=== PATIENT | female | born 1995 | race Hispanic/Latino ===

== ENCOUNTER 2016-10-01 20:05 | Emergency (ER) | payer OTHER ==
[2016-10-01 20:17] VITALS: BP 128/88; PULSE 110; TEMP 97.5; O2SAT 96
[2016-10-01] MEDS ORDERED: Aluminum Hydroxide/Magnesium Hydroxide Susp (30 mL) PO STA (21:38)
--- NOTE | 2016-10-01 21:38 | C.PDOC ---
History Of Present Illness 21 year old female presents to the ED with complaints of cough with sputum, decreased appetite and taste, "chest burning" feeling when coughing and episodes of diarrhea that has been worsening over the last two weeks. Patient states she visited her PMD on Wednesday and was given amoxicillin with no relief. She denies any abdominal pain, fever, or any other complaints at this time. Time Seen by Provider: 10/01/16 21:25 Chief Complaint (Nursing): Cough, Cold, Congestion History Per: Patient History/Exam Limitations: no limitations Onset/Duration Of Symptoms: Persistent (for two weeks) Current Symptoms Are (Timing): Worse Associated Symptoms: Cough, Sputum, Diarrhea. denies: Fever Past Medical History Reviewed: Historical Data, Nursing Documentation, Vital Signs Vital Signs: Last Vital Signs Temp 97.5 F L 10/01/16 20:13 Pulse 110 H 10/01/16 20:13 Resp 20 10/01/16 22:34 BP 128/88 10/01/16 20:13 Pulse Ox 96 10/01/16 22:28 - Medical History PMH: Hypothyroidism, Kidney Stones Other PMH: pcos Surgical History: Tonsillectomy Family History: States: Unknown Family Hx - Social History Hx Tobacco Use: No Hx Alcohol Use: Yes Hx Substance Use: No - Immunization History Hx Tetanus Toxoid Vaccination: Yes Hx Influenza Vaccination: No Hx Pneumococcal Vaccination: No Review Of Systems Constitutional: Positive for: Other (decreased appetite ). Negative for: Fever , Chills, Sweats Respiratory: Positive for: Cough (with sputum ). Negative for: Shortness of Breath Gastrointestinal: Positive for: Diarrhea. Negative for: Vomiting, Abdominal Pain Neurological: Negative for: Weakness, Numbness Physical Exam - Physical Exam Appears: Non-toxic, No Acute Distress Skin: Warm, Dry Head: Atraumatic, Normacephalic Eye(s): bilateral: PERRL, EOMI Ear(s): Left: Normal, Right: TM Obscured By Wax Nose: Discharge Oral Mucosa: Moist Tongue: Normal Appearing Throat: Normal Neck: Normal ROM, Supple Chest: Symmetrical, No Deformity Cardiovascular: Rhythm Regular, No Murmur Respiratory: Normal Breath Sounds, No Accessory Muscle Use, No Rales, No Rhonchi , No Stridor, No Wheezing Gastrointestinal/Abdominal: Soft, No Tenderness, No Distention, No Guarding, No Rebound Extremity: Normal ROM, No Tenderness Neurological/Psych: Oriented x3, Normal Speech, Normal Cognition ED Course And Treatment - Laboratory Results Urine POC: Negative O2 Sat by Pulse Oximetry: 96 - Radiology CXR: Interpreted by Me CXR Interpretation: Yes: No Acute Disease. No: Infiltrates Medical Decision Making Medical Decision Makin21 y/o female with pcos, hypothyroid, cough with sputum x 2 weeks with rhinorrhea, wiht neg cxr. pt already on amox. Disposition Counseled Patient/Family Regarding: Diagnosis, Need For Followup - Disposition Disposition: HOME/ ROUTINE Disposition Time: 22:27 Condition: GOOD Additional Instructions: Finish amoxicillin. Take Zyrtec in the morning. take a benadryl 25 mg by mouth at bedtime, makes you sleepy. Stay well hydrated. Follow up with your pmd in a few days. Return to ER for nay worsening symptoms. Instructions: Upper Respiratory Infection (ED) Forms: General Discharge Instructions - Clinical Impression Clinical Impression: Upper respiratory infection - Scribe Statement The provider has reviewed the documentation as recorded by the Scribberto Linton All medical record entries made by the Scribe were at my direction and personally dictated by me. I have reviewed the chart and agree that the record accurately reflects my personal performance of the history, physical exam, medical decision making, and the department course for this patient. I have also personally directed, reviewed, and agree with the discharge instructions and disposition.
[2016-10-01] MEDS ORDERED: Aluminum Hydroxide/Magnesium Hydroxide Susp (30 mL) ONE (21:45)
[2016-10-01 22:34] VITALS: RESP 20
--- NOTE | 2016-10-02 09:59 | RAD ---
HISTORY: cough green sputum COMPARISON: No prior. TECHNIQUE: Chest PA and lateral FINDINGS: LUNGS: No active pulmonary disease. PLEURA: No significant pleural effusion identified. No pneumothorax apparent. . CARDIOVASCULAR: There is mild pectus excavatum. Heart size within range of normal. OSSEOUS STRUCTURES: No significant abnormalities. VISUALIZED UPPER ABDOMEN: Normal. OTHER FINDINGS: None. IMPRESSION: No acute cardiopulmonary disease.
== END 2016-10-01 22:33 | disposition home or self-care (01) ==
LOC: C.ER 20:05
DX: J06.9 Acute upper respiratory infection, unspecified (principal)

== ENCOUNTER 2018-08-09 14:04 | Outpatient (CLI) | payer OTHER | END 2018-08-09 14:05 | disposition home or self-care (01) | LOC: C.LAB 14:04 | DX: Z87.442 Personal history of urinary calculi (principal); Z13.1 Encounter for screening for diabetes mellitus; I10 Essential (primary) hypertension; E78.3 Hyperchylomicronemia; R50.9 Fever, unspecified ==

== ENCOUNTER → 2018-09-04 | Outpatient (CLI) | payer OTHER | LOC: C.LAB 10:26 | DX: E28.2 Polycystic ovarian syndrome (principal) ==

== ENCOUNTER 2018-10-08 07:57 | Outpatient (CLI) | payer OTHER | END 2018-10-08 07:58 | disposition home or self-care (01) | LOC: C.USIC 07:57 ==